=== PATIENT | male | born 2000 | race Caucasian/White ===

== ENCOUNTER 2019-06-21 23:33 | Emergency (ER) | payer BC ==
[2019-06-22] MEDS ORDERED: Lidocaine 1% w/Epinephrine 1:100K 20 ML VIAL ONE (00:45)
--- NOTE | 2019-06-22 09:24 | CT ---
PRELIMINARY REPORT/[facility]/EMERGENCY AFTER HOURS PROCEDURE: EXAM: CT Head Without Contrast EXAM DATE/TIME: 06/21/2019 11:58 PM CLINICAL HISTORY: 19 years old, male; Injury or trauma; Initial encounter; Blunt trauma (contusions or hematomas); Yesenia ent HX: PT reports falling, lac to L forehead. ETOH, neck pain TECHNIQUE: Imaging protocol: Computed tomography of the head without contrast. COMPARISON: No relevant prior studies available. FINDINGS: Brain: No hemorrhage. No significant white matter disease. No edema. Ventricles: No ventriculomegaly. Bones/joints: Unremarkable. No acute fracture. Sinuses: Partial opacification anterior ethmoid air cells and frontal sinsues. Mastoid air cells: Visualized mastoid air cells are well aerated. Soft tissues: Unremarkable. IMPRESSION: No acute intracranial pathology. Sinus disease as described. Thank you for allowing us to participate in the care of your patient. Dictated and Authenticated by: Sukhdeep Ashley MD 06/22/2019 12:12 AM Central Time ([place] & [place]) FINAL REPORT EMERGENCY AFTER HOURS BRAIN CT WITHOUT IV CONTRAST: Date: 06/21/19 Time: 2359 hours FINDINGS/IMPRESSION: No mass or bleed, or other acute process. Report in agreement with preliminary report given on-call by Escobar. POS: [facility]
--- NOTE | 2019-06-22 09:26 | CT ---
PRELIMINARY REPORT/[facility]/EMERGENCY AFTER HOURS PROCEDURE: EXAM: CT Cervical Spine Without Contrast EXAM DATE/TIME: 06/21/2019 11:58 PM CLINICAL HISTORY: 19 years old, male; Injury or trauma; Initial encounter; Blunt trauma; Patient HX: PT reports falling , lac to L forehead. ETOH, neck pain TECHNIQUE: Imaging protocol: Computed tomography images of the cervical spine without contrast. COMPARISON: No relevant prior studies available. FINDINGS: Vertebrae: No acute fracture. Normal alignment. Discs/Spinal canal/Neural foramina: No spinal stenosis. No neural foraminal narrowing. Soft tissues: Unremarkable. Lungs: Lung apices are normal. IMPRESSION: No acute findings. Thank you for allowing us to participate in the care of your patient. Dictated and Authenticated by: Sukhdeep Ashley MD 06/22/2019 12:14 AM Central Time ([place] & [place]) FINAL REPORT EMERGENCY AFTER HOURS CERVICAL SPINE CT SCAN: Date: 06/22/19 Time: 0000 hours FINDINGS/IMPRESSION: Minimal motion artifact. No fracture or dislocation. Report in agreement with preliminary report given on-call by Escobar. POS: [facility]
== END 2019-06-22 04:29 | disposition home or self-care (01) ==
LOC: ERS 23:33
DX: S01.81XA Laceration without foreign body of other part of head, initial encounter (principal); F10.129 Alcohol abuse with intoxication, unspecified; F41.9 Anxiety disorder, unspecified; F32.9 Major depressive disorder, single episode, unspecified; W18.30XA Fall on same level, unspecified, initial encounter
CPT/HCPCS: 12011; 70450; 72125; J2001